=== PATIENT | male | born 1990 | race Caucasian/White ===

== ENCOUNTER 2017-03-20 11:16 | Emergency (ER) | payer OTHER ==
[2017-03-20 11:48] LABS: BASO # 0.1 10_X3_uL (0.0-0.1); BASO % 0.5 % (0.2-1.2); EOS # 0.3 10_X3_uL (0.0-0.5); EOS % 2.5 % (0.8-7.0); GRAN # 7.1 10_X3_uL (1.8-5.4); GRAN % 64.3 % (34.0-67.9); HEMATOCRIT 42.7 % (40-51); HEMOGLOBIN 14.6 g/dL (13.7-17.5); LYMPH # 2.8 10_X3_uL (1.3-3.6); LYMPH % 24.8 % (21.8-53.1); MEAN CORPUSCULAR HEMOGLOBIN 29.9 pg (27.0-33.0); MEAN CORPUSCULAR HGB CONC 34.2 g/dL (32.0-36.0); MEAN CORPUSCULAR VOLUME 87.3 fL (79-92); MEAN PLATELET VOLUME 10.8 fl (7.5-11.5); MONO # 0.9 10_X3_uL (0.3-0.8); MONO % 7.9 % (5.3-12.2); PLATELET COUNT 317 x10_3/uL (163-337); RED BLOOD COUNT 4.89 x10_6/uL (4.6-6.1); RED CELL DISTRIBUTION WIDTH 13.3 % (11.6-14.4); WHITE BLOOD COUNT 11.1 x10_3/uL (4.2-9.1)
[2017-03-20 12:28] LABS: ALBUMIN 4.3 gm/dL (3.4-5.0); ALKALINE PHOSPHATASE 57 U/L (50-136); ALT/SGPT 58 U/L (7.53-40.17); AST/SGOT 78 U/L (6.66-35.34); BILIRUBIN,TOTAL 0.47 mg/dL (0.0-1.0); BLOOD UREA NITROGEN 16 mg/dL (7-18); CALCIUM 9.2 mg/dL (8.7-10.7); CARBON DIOXIDE 23 mmol/L (21-32); CREATINE KINASE 89 U/L (35-232); CREATININE 0.8 mg/dL (0.6-1.3); GLUCOSE,RANDOM 105 mg/dL (70-99); LIPASE 28 U/L (6.75-60.75); POTASSIUM 3.8 mmol/L (3.5-5.1); SODIUM 142 mmol/L (136-145); TOTAL PROTEIN 7.1 gm/dL (6.4-8.2)
== END 2017-03-20 13:20 | disposition home or self-care (01) ==
LOC: ER 11:16
PROVIDERS: Internal Medicine
DX: R07.89 Other chest pain (principal); R11.2 Nausea with vomiting, unspecified; K21.9 Gastro-esophageal reflux disease without esophagitis; F17.210 Nicotine dependence, cigarettes, uncomplicated; Z82.49 Family history of ischemic heart disease and other diseases of the circulatory system; Z79.82 Long term (current) use of aspirin; Z79.899 Other long term (current) drug therapy
CPT/HCPCS: 36415; 71020; 80053; 82550; 82553; 83690; 85025; 93005; 96374; 99285-25